=== PATIENT | female | born 1985 | race Two or more races ===

== ENCOUNTER 2018-11-11 10:28 | Outpatient (CLI) | payer OTHER ==
[~2018-11-11] VITALS: Ht 172.7 cm; Wt 72.7 kg
[2018-11-11 10:54] VITALS: BP 138/90
[2018-11-11 11:01] LABS: MICROSCOPIC INDICATED
[2018-11-11 11:04] LABS: BASOPHILS # (AUTO) 0.07 x10^3/uL (0-0.1); BASOPHILS % (AUTO) 1 % (0-1); EOSINOPHILS # (AUTO) 0.04 x10^3/uL (0-0.4); EOSINOPHILS % (AUTO) 1 % (1-7); LYMPHOCYTES # (AUTO) 1.28 x10^3/uL (1-3.4); LYMPHOCYTES % (AUTO) 15 % (22-44); MD NO; MEAN CORPUSCULAR HEMOGLOBIN 28.8 pg (27.0-34.8); MEAN CORPUSCULAR HGB CONC 34.3 g/dL (32.4-35.8); MEAN CORPUSCULAR VOLUME 84.1 fL (80-100); MEAN PLATELET VOLUME 9.2 fL (7.4-10.4); MONOCYTES # (AUTO) 0.58 x10^3/uL (0.2-0.8); MONOCYTES % (AUTO) 7 % (2-9); NEUTROPHILS # (AUTO) 6.69 x10^3/uL (1.8-6.8); NEUTROPHILS % (AUTO) 77 % (42-75); PLATELET COUNT 237 x10^3/uL (130-400); RED BLOOD COUNT 3.89 x10^6/uL (3.82-5.3); RED CELL DISTRIBUTION WIDTH 14.7 % (9.6-15.2)
[2018-11-11 11:14] LABS: ALANINE AMINOTRANSFERASE 22 U/L (12-78); ALBUMIN 2.8 g/dL (3.4-5.0); ANION GAP 7 mmol/L (5-15); CALCIUM 8.7 mg/dL (8.5-10.1); CHLORIDE 106 mmol/L (98-107); CREATININE 0.62 mg/dL (0.55-1.02)
[2018-11-11 11:16] LABS: ALKALINE PHOSPHATASE 201 U/L (45-117); BILIRUBIN, DIRECT < 0.1 mg/dL (0.1-0.2); BILIRUBIN,TOTAL 0.3 mg/dL (0.2-1.0); TOTAL PROTEIN 6.7 g/dL (6.4-8.2)
[2018-11-11] MEDS ORDERED: PREN-3 PO (12:21)
[2018-11-11] MEDS ORDERED: LEVO100T PO (12:21)
== END 2018-11-11 12:25 | disposition home or self-care (01) ==
LOC: LDOP 10:28
PROVIDERS: ATTEND Obstetrics & Gynecology
DX: O13.3 Gestational [pregnancy-induced] hypertension without significant proteinuria, third trimester (principal); Z3A.40 40 weeks gestation of pregnancy
CPT/HCPCS: 36415; 59025; 80053; 81001; 82248; 82570; 84156; 84550; 85025; 99211; G0463

== ENCOUNTER 2018-11-12 16:11 | Outpatient (CLI) | payer OTHER ==
[~2018-11-12 16:11] MED LIST: LEVO100T PO; PREN-3 PO
[2018-11-12] MEDS ORDERED: BETAMETHASONE 6 MG/ML, 5ML IM SCH (16:30)
[2018-11-12] MEDS ORDERED: BETAMETHASONE 6 MG/ML, 5ML IM ONE (16:41)
[2018-11-17] MEDS ORDERED: ACETAMINOPHEN 325 MG TABLET ONE (04:52)
[2018-11-17] MEDS ORDERED: LABETALOL 200 MG TABLET ONE (21:26)
[2018-11-18] MEDS ORDERED: hydrALAzine 20 MG/ML, 1ML ONE (21:10)
[2018-11-18] MEDS ORDERED: NEWBORN KIT ONE (22:15)
[2018-11-19] MEDS ORDERED: OXYTOCIN 30U/ 0.9% NaCL 500ML 500 ML ONE (03:04)
[2018-11-19] MEDS ORDERED: OXYcodone/APAP 5/325MG TABLET ONE (14:33)
[2018-11-22] MEDS ORDERED: LABE200T6 PO (08:17)
[2018-11-22] MEDS ORDERED: ACET-1757 PO (08:19)
[2018-11-22] MEDS ORDERED: ACET325T26 PO (08:20)
[2018-11-22] MEDS ORDERED: IBUP-1222 PO (08:22)
[2018-11-22] MEDS ORDERED: SIME80TA15 PO (08:23)
[2018-11-22] MEDS ORDERED: FERR325T18 PO (08:25)
[2018-11-22] MEDS ORDERED: OXYC-302 PO (08:26)
[2018-11-22] MEDS ORDERED: SENN1TAB8 PO (08:28)
== END 2018-11-12 23:59 | disposition home or self-care (01) ==
LOC: LDOP 16:11
PROVIDERS: ATTEND Obstetrics & Gynecology
DX: O26.893 Other specified pregnancy related conditions, third trimester (principal); O15.03 Eclampsia complicating pregnancy, third trimester; R10.9 Unspecified abdominal pain; J45.909 Unspecified asthma, uncomplicated; Z3A.28 28 weeks gestation of pregnancy
CPT/HCPCS: 96372; J0702

== ENCOUNTER 2018-11-13 16:28 | Observation (INO) | payer OTHER ==
[~2018-11-13] VITALS: Ht 172.7 cm; Wt 72.7 kg
[2018-11-13] MEDS ORDERED: BETAMETHASONE 6 MG/ML, 5ML IM ONE ×2 (16:45→17:00)
[2018-11-13 17:00] VITALS: BP 162/110
[2018-11-13] MEDS ORDERED: PLEASE ENTER HEIGHT AND WEIGHT MC SCH (17:00)
[2018-11-13] MEDS ORDERED: LABETALOL 5MG/ML, 20ML ONE (17:27)
[2018-11-13 17:28] LABS: MICROSCOPIC INDICATED
[2018-11-13] MEDS ORDERED: LABETALOL 5MG/ML, 20ML IVPush ONE ×3 (17:30)
[2018-11-13] MEDS ORDERED: hydrALAzine 20 MG/ML, 1ML IVPush ONE (17:30)
[2018-11-13] MEDS ORDERED: LACTATED RINGERS 1,000 ML IV SCH (17:40)
[2018-11-13 18:09] LABS: ALANINE AMINOTRANSFERASE 22 U/L (12-78); ALBUMIN 2.9 g/dL (3.4-5.0); ANION GAP 10 mmol/L (5-15); CALCIUM 8.8 mg/dL (8.5-10.1); CHLORIDE 107 mmol/L (98-107); CREATININE 0.62 mg/dL (0.55-1.02)
[2018-11-13 18:10] LABS: MEAN CORPUSCULAR HEMOGLOBIN 28.2 pg (27.0-34.8); MEAN CORPUSCULAR HGB CONC 33.5 g/dL (32.4-35.8); MEAN CORPUSCULAR VOLUME 84.2 fL (80-100); MEAN PLATELET VOLUME 9.9 fL (7.4-10.4); PLATELET COUNT 288 x10^3/uL (130-400); RED BLOOD COUNT 3.91 x10^6/uL (3.82-5.3); RED CELL DISTRIBUTION WIDTH 15.1 % (9.6-15.2)
[2018-11-13 18:11] LABS: ALKALINE PHOSPHATASE 212 U/L (45-117); BILIRUBIN,TOTAL 0.1 mg/dL (0.2-1.0); TOTAL PROTEIN 7.1 g/dL (6.4-8.2)
[2018-11-13 18:46] LABS: BASOPHILS # (AUTO) 0.04 x10^3/uL (0-0.1); BASOPHILS % (AUTO) 0 % (0-1); EOSINOPHILS # (AUTO) 0.01 x10^3/uL (0-0.4); EOSINOPHILS % (AUTO) 0 % (1-7); LYMPHOCYTES % (AUTO) 10 % (22-44); MD SCAN; MONOCYTES # (AUTO) 1.15 x10^3/uL (0.2-0.8); MONOCYTES % (AUTO) 7 % (2-9); NEUTROPHILS # (AUTO) 13.66 x10^3/uL (1.8-6.8); NEUTROPHILS % (AUTO) 83 % (42-75)
[2018-11-13 20:42] LABS: CREATININE,URINE RANDOM 45.8 mg/dL
[2018-11-13] MEDS ORDERED: ACETAMINOPHEN 325 MG TABLET ONE (21:04)
[2018-11-13] MEDS ORDERED: ACETAMINOPHEN 325 MG TABLET PO PRN (21:30)
[2018-11-14] MEDS ORDERED: LABETALOL 200 MG TABLET PO SCH (08:00)
[2018-11-14] MEDS ORDERED: LABETALOL 200 MG TABLET ONE (08:07)
== END 2018-11-14 13:41 | disposition home or self-care (01) ==
LOC: LDOP 16:28 → LDIP 17:48
PROVIDERS: ADMIT Obstetrics & Gynecology; ATTEND Obstetrics & Gynecology
DX: O15.03 Eclampsia complicating pregnancy, third trimester (principal); O99.513 Diseases of the respiratory system complicating pregnancy, third trimester; J45.909 Unspecified asthma, uncomplicated; O26.893 Other specified pregnancy related conditions, third trimester; R10.9 Unspecified abdominal pain; R51 Headache; Z3A.28 28 weeks gestation of pregnancy
CPT/HCPCS: 36415; 59025; 80053; 81001; 82570; 84156; 84443; 84550; 85025; 96372; 96374; G0378; J0702; J7120; 96360; 96361

== ENCOUNTER → 2018-12-24 | Outpatient (CLI) | payer OTHER ==
[~2018-12-24] MED LIST changes: +ACET-1757 PO; +ACET325T26 PO; +FERR325T18 PO; +IBUP-1222 PO; +LABE200T6 PO; +OMNIPAQUE 350 MG/ML, 100ML BOTTLE ONE; +OXYC-302 PO; +SENN-177 PO; +SIME80TA15 PO
== END | disposition home or self-care (01) ==
LOC: CFH 09:24
PROVIDERS: ATTEND Obstetrics & Gynecology
DX: G89.18 Other acute postprocedural pain (principal)
CPT/HCPCS: 74177; Q9967